=== PATIENT | female | born 1975 | race Caucasian/White ===

== ENCOUNTER 2020-03-24 11:28 | Emergency (ER) | payer SELFPAY | END 2020-03-24 11:45 | disposition left against medical advice (07) | LOC: FSED 11:28 | DX: O20.9 Hemorrhage in early pregnancy, unspecified (principal); O20.0 Threatened abortion ==

== ENCOUNTER 2020-03-25 00:11 | Emergency (ER) | payer SELFPAY ==
[~2020-03-25] VITALS: Ht 167.6 cm; Wt 55.3 kg
--- NOTE | 2020-03-25 02:19 | Diagnostic Imaging Report ---
EXAM: Obstetric Pelvic Ultrasound INDICATION: ^BLEEDING COMPARISON: None TECHNIQUE: Transabdominal and transvaginal evaluation of the pelvis was performed in the transverse and longitudinal planes. CLINICAL HISTORY: ... year old G...; last menstrual period: ... FINDINGS: Uterus: Orientation: Retroflexed Size: 11.1 x 6.7 x 8.6 cm, Normal Mass: 1.8 x 2.1 x 1.8 cm hypoechoic myometrial fibroid in the fundus. Cervix: 3.0 x 1.4 cm oval-shaped predominantly hypoechoic heterogeneous structure in the endocervical canal without vascularity. Gestational Sac: No intrauterine gestational sac is identified. Yolk sac: None identified. Embryo/Fetus: None identified. Right ovary: Not visualized due to overlying bowel gas. Left ovary Size: 2.3 x 1.2 x 1.6 cm Mass/Cyst: None Adnexa: Tubular structure adjacent to the uterus likely represents a fallopian tube, which shows mildly increased vascularity, however, no focal lesion is identified. Cul-de-sac: Small amount of free fluid in the pelvic cul-de-sac IMPRESSION: of unknown location. No ectopic is identified. Findings in the endocervical canal are highly suggestive of in progress given the history. Recommend follow-up serial beta hCG and transvaginal ultrasound in one week. classification: Viable: can potentially result in a liveborn baby Visualized embryo with FHT Nonviable: Findings diagnostic of failure Ectopic CRL >= 7 mm and no FHT MSD >= 25 mm and no embryo No FHT >= 2 weeks after US showed GS w/o YS No FHT >= 11 days after US showed GS w/ YS Intrauterine of uncertain viability: Intrauterine GS with no FHT and no definite findings of failure of unknown location: Positive urine or serum test and no IUP or ectopic on US ?@ Diagnostic Criteria for Nonviable Early in the First Trimester N Engl J Med 2013;369:1443-51. DOI: [id number] Signed by: Dr. Paxton Barrett M.D. on 03/25/2020 2:15 AM
--- NOTE | 2020-03-25 02:38 | Emergency Department Note ---
History of Present Illnes History of Present Illness Chief Complaint: General Medicine Complaints History of Present Illness This is a 44 year old female Chief Complaint Comment PT STATES SHE MAY BE APPROX 11 WEEKS (LMP 01/01/20), STARTED SPOTTING DARK BROWN BLOOD 2 DAYS AGO, WITH MINIMAL ABD CRAMPING, WAS HERE TODAY AROUND 12 NOON BC STARTED TO HAVE LARGE AMOUNT OF BRIGHT RED VAGINAL BLEEDING BUT ENDED UP LEAVING WITHOUT BEING SEEN SECONDARY TO ABD PAIN AGAIN BEING NOT SO PAINFUL? PT RETURNED TONIGHT BC ABD PAIN IN INCREASING AND BLEEDING IS TOO MUCH PER PATIENT? . Historian: Patient Arrival Mode: Car Onset (how long ago): day(s) (1) Location: pelvic Quality: dull Radiation: Denies non-radiation, Denies back, Denies neck, Denies extremity, Denies abdomen, Denies periumbilical, Denies flank, Denies proximal, Denies distal, Denies other Severity: moderate Onset quality: gradual Duration (how long): day(s) (1) Timing of current episode: constant Progression: waxing and waning Chronicity: new Context: Denies recent illness, Denies recent surgery, Denies recent immobilization, Denies recent travel, Denies trauma/injury, Denies new medications, Denies hx of DVT/PE, Denies non-compliance w/ medications, Denies other Relieving factors: none Exacerbating factors: none Associated symptoms: Denies denies other symptoms, Denies confusion, Denies chest pain, Denies cough, Denies diaphoresis, Denies fever/chills, Denies headaches, Denies loss of appetite, Denies malaise, Denies nausea/vomiting, Denies rash, Denies seizure, Denies shortness of breath, Denies syncope, Denies weakness, Denies other Treatments prior to arrival: none Past Medical/Family History Physician Review I have reviewed the patient's past medical and family history. Any updates have been documented here. Past Medical History Recent Fever: No Clinical Suspicion of Infectio: No New/Unexplained Change in Ment: No Past Medical History: None Past Surgical History: None Social History Smoking Cessation: Never Smoker Counseling Performed: No Alcohol Use: None Any Illegal Drug Use: No TB Exposure/Symptoms: No Physically hurt or threatened: No Other Last Tetanus: UNK Any Pre-Existing Lines (PICC,: No Is patient up to date on immun: No Last Flu: UNK Last Pneumovax: UNK Review of Systems Review of Systems Constitutional: Reports no symptoms EENTM: Reports no symptoms Cardiovascular: Reports no symptoms Respiratory: Reports no symptoms Gastrointestinal: Reports no symptoms Genitourinary: Reports as per HPI Musculoskeletal: Reports no symptoms Integumentary: Reports no symptoms Neurological: Reports no symptoms Psychological: Reports no symptoms Endocrine: Reports no symptoms Hematological/Lymphatic: Reports no symptoms Physical Exam Related Data Allergies: Coded Allergies: No Known Allergies (Unverified , 03/25/20) Triage Vital Signs Vital Signs Date Time Temp Pulse Resp B/P (MAP) Pulse Ox O2 Delivery O2 Flow Rate FiO2 03/25/20 00:25 98.5 78 18 150/70 100 Vital signs reviewed: Yes Physical Exam CONSTITUTIONAL Constitutional: Present well-developed, Present well-nourished HENT HENT: Present normocephalic, Present atraumatic, Present oropharynx clear/moist, Present nose normal HENT L/R: Present left ext ear normal, Present right ext ear normal EYES Eyes: Reports PERRL, Reports conjunctivae normal NECK Neck: Present ROM normal PULMONARY Pulmonary: Present effort normal, Present breath sounds normal CARDIOVASCULAR Cardiovascular: Present regular rhythm, Present heart sounds normal, Present capillary refill normal, Present normal rate GASTROINTESTINAL Abdominal: Present soft, Present nontender, Present bowel sounds normal GENITOURINARY Genitourinary: Present exam deferred SKIN Skin: Present warm, Present dry MUSCULOSKELETAL Musculoskeletal: Present ROM normal NEUROLOGICAL Neurological: Present alert, Present oriented x 3, Present no gross motor or sensory deficits PSYCHOLOGICAL Psychological: Present mood/affect normal, Present judgement normal Results Laboratory Laboratory Laboratory Tests Test 03/25/20 00:40 Human Chorionic Gonadotropin, Quant 5963.58 mIU/mL (0-10) Lab results reviewed: Yes Imaging Imaging results reviewed: Yes Assessment & Plan Medical Decision Making MDM threatened ab...ectopic Reassessment Reassessment time: 02:36 Reassessment no change Assessment & Plan Final Impression: (1) Threatened (2) Vaginal bleeding Depart Disposition: HOME, SELF-CARE Last Vital Signs Date Time Temp Pulse Resp B/P (MAP) Pulse Ox O2 Delivery O2 Flow Rate FiO2 03/25/20 00:25 98.5 78 18 150/70 100 KINGSTON CISNEROS MD Mar 25, 2020 02:38
[2020-03-25] MEDS ORDERED: TRAMADOL HCL 50 MG TAB ONE (02:52)
[2020-03-25] MEDS ORDERED: TRAMADOL HCL 50 MG TAB PO ONE (03:00)
== END 2020-03-25 02:56 | disposition home or self-care (01) ==
LOC: FSED 00:11
DX: O20.9 Hemorrhage in early pregnancy, unspecified (principal); O20.0 Threatened abortion
CPT/HCPCS: 36415; 76801; 80053; 81003; 81025; 84702; 85025; 86900; 99284